=== PATIENT | male | born 2000 | race African-American/Black ===

== ENCOUNTER 2018-09-28 09:42 | Day surgery (SDC) | payer OTHER ==
[2018-09-25 16:18] VITALS: BMI 25.1
[2018-09-28] MEDS ORDERED: MIDAZOLAM HCL 2 MG/2 ML SINGLE DOSE VIAL ONE (11:02)
[2018-09-28] MEDS ORDERED: PROPOFOL 20 ML ONE ×2 (11:02→12:34)
[2018-09-28] MEDS ORDERED: BUPIVACAINE HCL/PF 0.5% (5MG/ML) 10 ML VIAL ONE (12:19)
[2018-09-28] MEDS ORDERED: BUPIVACAINE HCL/PF 0.25% (2.5MG/ML) 10 ML VIAL ONE (12:19)
[2018-09-28] MEDS ORDERED: DEXAMETHASONE SOD PHOSPHATE 4 MG/1 ML VIAL ONE (12:43)
[2018-09-28] MEDS ORDERED: ceFAZolin SODIUM 1 GM VIAL IVPB ONE (12:53)
[2018-09-28] MEDS ORDERED: BUPIVACAINE HCL/PF 0.25% (2.5MG/ML) 10 ML VIAL IJ ONE (12:55)
[2018-09-28] MEDS ORDERED: BUPIVACAINE HCL/PF (5 MG/ML) 30 ML VIAL IJ ONE (13:15)
[2018-09-28] MEDS ORDERED: BACITRACIN 15 GM TUBE TOPICAL OINTMENT ONE (13:19)
[2018-09-28] MEDS ORDERED: oxyCODONE HCL 5 MG TABLET PO PRN (13:37)
--- NOTE | 2018-09-28 14:33 | OP ---
Operative Note - Note: Operative Date: 09/28/18 Pre-Operative Diagnosis: penile deformity and distal urethral stricture Operation: penoplasty and urethroplasty Findings: severe scarring of frenulum with involvement of ventral urethra causing 30 degree curvature and urethral stricture Post-Operative Diagnosis: Same as Pre-op Surgeon: Pk Guerra Anesthesia: General Specimens Removed: specimen of scar tissue of glans at urethra
[2018-09-28 17:25] VITALS: BP 120/70; PULSE 48; TEMP 97.8
--- NOTE | 2018-09-30 16:52 | PATH ---
Surgical Pathology Report Patient Name: KIYA NUNEZ Med. Rec. #: [id number] /Age/Gender: 2000 (Age: 18) / M Account: [id number] Location: [facility] SURGICAL Taken: 09/28/2018 Received: 09/29/2018 Reported: 09/30/2018 Physicians: Pk Guerra Specimen(s) Received GLANS PENIS Clinical History Balanoposthitis Final Diagnosis GLANS PENIS, PENOPLASTY: SMALL FRAGMENTS OF SQUAMOUS MUCOSA WITH MILD FIBROSIS AND MILD CHRONIC INFLAMMATION. Electronically Signed Lola Mcginnis M.D. Gross Description Received in formalin, labeled "glans penis" is a knox, irregular portion of soft tissue measuring 0.3 cm. in greatest dimension. The specimen is submitted in toto in one cassette. 09/29/201809/29/2018
--- NOTE | 2018-11-01 16:52 | OP ---
DATE OF OPERATION: 09/28/2018 PREOPERATIVE DIAGNOSIS: Penile deformity and distal urethral stricture. POSTOPERATIVE DIAGNOSIS: Penile deformity and distal urethral stricture. PROCEDURE: Penoplasty and urethroplasty. DESCRIPTION: The patient was brought in the operating room, placed in supine position on the operating room table. Anesthesia and preoperative antibiotics were given. The patient was prepped and draped in the usual sterile manner. There was noted to be severe scarring of the frenulum of the penis causing significant curvature of the penis with the stricture involving the distal urethra. The relaxing incision was made in the glans penis in the ventral aspect. An excision of a segment of the scar tissue was sent for pathologic evaluation. At this point, dissection of the ventral aspect of the urethra was performed, with advancement of the urethra to cover the defect of the scarred urethra, which had been excised. Then 4-0 chromic stitches were placed in an interrupted fashion. At this point, penile skin was closed with a rotational flap in order to cover the defect on the glans. A 2-layer closure was performed. Excellent straightening of the penis with an adequate distal urethral caliber was attained. There were no complications noted. Local anesthesia was placed as a penile block at the end of the procedure. The patient tolerated the procedure very well. The disposition of the patient was to recovery room. BELA PEDROZA M.D. [id number]
== END 2018-09-28 17:15 | disposition home or self-care (01) ==
LOC: JASU-SURG 09:42
PROVIDERS: ATTEND Urology
PROC: 0VNS0ZZ Release Penis, Open Approach (ICD-10-PCS; 2018-09-28)
PROC: 0TQD0ZZ Repair Urethra, Open Approach (ICD-10-PCS; principal; 2018-09-28 11:00)
DX: N47.6 Balanoposthitis (principal); N35.819 Other urethral stricture, male, unspecified site; Q55.69 Other congenital malformation of penis
CPT/HCPCS: 88304-TC; 94760